=== PATIENT | female | born 1945 | race Caucasian/White ===

== ENCOUNTER 2017-12-08 12:22 | Emergency (ER) | payer OTHER ==
[~2017-12-08] VITALS: Ht 167.6 cm; Wt 63.0 kg
[2017-12-08 13:31] LABS: BASOPHIL (%) 0.7 % (0-1); EOSINOPHIL (%) 9.6 % (0-5); EOSINOPHIL COUNT 0.5 K/uL (0-0.3); HEMATOCRIT 39.9 % (36.0-46.0); HEMOGLOBIN 13.4 G/DL (11.9-15.5); IMMATURE GRANULOCYTE (%) 0.2 % (0.0-0.7); LYMPHOCYTE (%) 34.1 % (15-42); LYMPHOCYTE COUNT 1.9 K/uL (1.0-2.8); MCHC 33.6 G/DL (30.0-36.0); MCV 95.2 FL (83-99); MONOCYTE (%) 8.8 % (3-12); MONOCYTE COUNT 0.5 K/uL (0-0.8); NEUTROPHIL (%) 46.6 % (45-76); NEUTROPHIL COUNT 2.5 K/uL (1.8-6.4); PLATELET COUNT 236 K/uL (156-360); RBC DIS.WIDTH-CV 12.2 % (11.8-14.6); RBC DIS.WIDTH-SD 42.7 % (39-53); RED BLOOD COUNT 4.19 M/uL (3.80-5.20); WHITE BLOOD COUNT 5.4 K/uL (4.1-10.2)
[2017-12-08 13:42] LABS: ALBUMIN 4.5 g/dL (3.2-4.8); CHLORIDE 108 mEq/L (99-109); SODIUM 141 mEq/L (136-147)
[2017-12-08 13:44] LABS: GLUCOSE 101 mg/dL (70-99)
[2017-12-08 13:45] LABS: TOTAL PROTEIN 6.9 g/dL (6.4-8.3)
[2017-12-08 13:46] LABS: TOTAL BILIRUBIN 0.6 mg/dL (0.0-1.0)
[2017-12-08 13:47] LABS: SERUM ETHYL ALCOHOL < 10 mg/dL
[2017-12-08 13:48] LABS: CREATININE 0.8 mg/dL (0.6-1.3); GFR ESTIMATE (CALCULATED) > 59 mL/min/
[2017-12-08 13:49] LABS: ALKALINE PHOSPHATASE 97 IU/L (3-129)
[2017-12-08 13:50] LABS: AST (GOT) 16 IU/L (2-34); UREA NITROGEN (BUN) 8 mg/dL (9-23)
[2017-12-08 13:52] LABS: ACETAMINOPHEN (TYLENOL) < 10 mcg/mL (10-30); ALT (GPT) 13 IU/L (3-49); SALICYLATE < 5.0 MG/DL (15-30)
[2017-12-08 15:25] VITALS: BP 149/95
== END 2017-12-08 15:25 | disposition home or self-care (01) ==
LOC: EME 12:22
PROVIDERS: Emergency Medicine
DX: F32.9 Major depressive disorder, single episode, unspecified (principal); R45.84 Anhedonia; Z87.891 Personal history of nicotine dependence
CPT/HCPCS: 80053; 81003; 85025; 90837; 99281; 99284; G0480